=== PATIENT | male | born 1935 | race Two or more races ===

== ENCOUNTER 2025-05-20 06:42 | Outpatient (CLI) | payer MEDICARE, MEDICAID ==
[2025-05-20 07:52] LABS: Nucleated Red Blood Cells % 0.2 %
[2025-05-20 07:55] LABS: Hematocrit 39.4 % (41.0-53.0); Hemoglobin 13.0 g/dL (13.5-17.5); Mean Corpuscular Hemoglobin 24.4 pg (28.0-32.0); Mean Corpuscular Volume 74.1 fL (80.0-100.0)
[2025-05-20 08:12] LABS: Alanine Aminotransferase 19 U/L (7-40); Alkaline Phosphatase 99 U/L (46-116); Calcium 9.1 mg/dL (8.7-10.4); Carbon Dioxide 23 mmol/L (20-31); Chloride 105 mmol/L (98-107); Glucose 96 mg/dL (74-106); Potassium 3.9 mmol/L (3.5-5.1); Sodium 141 mmol/L (136-145); Triglycerides 143 mg/dL (< 150)
[2025-05-20 08:13] LABS: Albumin 4.1 g/dL (3.2-4.8); Anion Gap 13 (5-15); BUN/Creatinine Ratio 10.3 (10.0-20.0); Blood Urea Nitrogen 10 mg/dL (9-23); Cholesterol 193 mg/dL (< 200); Total Protein 7.3 g/dL (5.7-8.2)
[2025-05-20 08:14] LABS: Bilirubin, Total 0.7 mg/dL (0.2-1.0); HDL Cholesterol 49 mg/dL (40-59)
== END 2025-05-20 17:00 | disposition home or self-care (01) ==
LOC: LAB 06:42
PROVIDERS: ATTEND Nurse Practitioner Family
DX: I11.0 Hypertensive heart disease with heart failure (principal); I50.9 Heart failure, unspecified; R42 Dizziness and giddiness; R35.1 Nocturia; R60.9 Edema, unspecified; Z00.01 Encounter for general adult medical examination with abnormal findings
CPT/HCPCS: 36415; 80053; 80061; 83880; 84153; 84443; 85025